=== PATIENT | female | born 1990 | race Caucasian/White ===

== ENCOUNTER → 2019-05-16 | Outpatient (CLI) | payer OTHER ==
--- NOTE | 2019-05-16 11:40 | XR ---
EXAMINATION TYPE: XR knee complete LT DATE OF EXAM: 05/16/2019 CLINICAL HISTORY: Twisting injury with pain and instability. TECHNIQUE: Three views of the left knee are obtained. COMPARISON: None. FINDINGS: There is no acute fracture/dislocation evident in left knee. Mild narrowing medial tibiofe moral compartment. No significant spurring. Soft tissues are unremarkable. A fabella is incidentally seen. IMPRESSION: There is no acute fracture or dislocation in the left knee.
== END | disposition home or self-care (01) ==
LOC: RADXRMAIN 11:00
PROVIDERS: ATTEND Family Medicine
DX: S83.8X2A Sprain of other specified parts of left knee, initial encounter (principal)

== ENCOUNTER → 2019-06-05 | Outpatient (CLI) | payer OTHER ==
--- NOTE | 2019-06-05 15:15 | MR ---
EXAMINATION TYPE: MR knee LT wo con DATE OF EXAM: 06/05/2019 COMPARISON: 05/16/2019 x-rays HISTORY: Left knee pain TECHNIQUE: Multiplanar, multisequence imaging of the left knee is performed without IV contrast. FINDINGS: MEDIAL MENISCUS: There is an oblique tear of the posterior horn of the lateral meniscus contiguous wi th the inferior articular surface with radial tear of the free edge of the posterior horn of the late ral meniscus. LATERAL MENISCUS: Anterior and posterior horns are intact without tear. CRUCIATE LIGAMENTS: The anterior and posterior cruciate ligaments are intact. There is increased sig nal of the anterior cruciate ligament and low-grade partial-thickness tear of the posterior insertion al fibers. COLLATERAL LIGAMENTS: The medial collateral ligament and lateral collateral ligament complex are are intact. EXTENSOR MECHANISM: Visualized quadriceps and patellar tendons are intact. Increased signal is seen i n the insertional fibers of the extensor tendon and patellar tendon. EFFUSION: No significant suprapatellar joint effusion. POPLITEAL CYST: No popliteal/stratton cyst. TRICOMPARTMENT SPACES: Maintained CARTILAGE: Partial-thickness defect is seen of the weightbearing surface of the and lateral femoral c ondyle measuring 6 mm. Signal heterogeneity is seen of the medial compartment cartilage with thinning of the anterior pharynx surface although no partial thickness or full-thickness focal defect is seen . Focal fissuring is seen of the patellofemoral compartment of the patellar apex. BONE MARROW SIGNAL: Intraosseous ganglion is T2 hyperintense and T1 hypointense deep to the insertion of the posterior cruciate ligament. OTHER: Mild nonspecific infrapatellar subcutaneous edema is seen. IMPRESSION: 1. Oblique tear of the posterior horn of the medial meniscus contiguous with the inferior articular s urface and radial tear of the free edge of the posterior horn of the medial meniscus. 2. Low-grade partial-thickness tear of the posterior insertional fibers of the anterior cruciate liga ment and mid grade sprain. 3. Slight increased signal the insertional fibers of the quadriceps and patellar tendon indicative of minimal insertional tendinosis. 4. Mild tricompartmental chondromalacia.
== END | disposition home or self-care (01) ==
LOC: RADMRIMAIN 12:21
PROVIDERS: ATTEND Emergency Medicine
DX: S83.242D Other tear of medial meniscus, current injury, left knee, subsequent encounter (principal); S83.512D Sprain of anterior cruciate ligament of left knee, subsequent encounter; M94.262 Chondromalacia, left knee

== ENCOUNTER → 2019-06-24 | Outpatient (CLI) | payer OTHER ==
[2019-06-24 08:18] LABS: Basophils # (A) 0.1 k/uL (0-0.2); Basophils % (A) 1 %; Eosinophils # (A) 0.3 k/uL (0-0.7); Eosinophils % (A) 3 %; HCT 43.7 % (34.0-46.0); Lymphocytes # (A) 3.3 k/uL (1.0-4.8); Lymphocytes % (A) 33 %; MCH 29.1 pg (25.0-35.0); MCHC 34.3 g/dL (31.0-37.0); MCV 84.7 fL (80.0-100.0); Mean Platelet Volume 5.7; Monocytes # (A) 0.6 k/uL (0-1.0); Monocytes % (A) 6 %; Neutrophils # (A) 5.4 k/uL (1.3-7.7); Neutrophils % (A) 55 %; Platelet Count 426 k/uL (150-450); RBC 5.17 m/uL (3.80-5.40); RDW 12.9 % (11.5-15.5); WBC 9.8 k/uL (3.8-10.6)
[2019-06-24 08:21] LABS: Potassium 4.7 mmol/L (3.5-5.1)
== END | disposition home or self-care (01) ==
LOC: LABPAT 07:33
PROVIDERS: ATTEND Orthopaedic Surgery
DX: Z01.812 Encounter for preprocedural laboratory examination (principal); M23.92 Unspecified internal derangement of left knee
CPT/HCPCS: 36415; 80051; 81025; 85025

== ENCOUNTER 2019-06-28 07:26 | Day surgery (SDC) | payer OTHER ==
[2019-06-26 10:16] VITALS: BMI 40.7
--- NOTE | 2019-06-27 12:26 | HP ---
HISTORY AND PHYSICAL CHIEF COMPLAINT: Left knee pain. 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 She tripped over some uneven cement and twisted her knee. She has had posterior and lateral pain along with giving way ever since. It is worse with weightbearing. Initially she was using a knee immobilizer. She has been working with restrictions. PAST MEDICAL HISTORY: Significant for depression, reflux disease, and polycystic ovarian disease. Also she has a history of non-insulin dependent diabetes. PAST SURGICAL HISTORY: Significant for cholecystectomy and previous shoulder surgery. CURRENT MEDICATIONS: 1. Buspirone. 2. Metformin. 3. Omeprazole. 4. Singulair. She denies drug allergies. FAMILY HISTORY: Significant for cancer, diabetes, and heart disease. SOCIAL HISTORY: Negative for current tobacco or alcohol use. REVIEW OF SYSTEMS: A 16point review of systems otherwise reviewed and is noncontributory. PHYSICAL EXAMINATION: On examination, the patient is approximately 5 foot 3, 230 pounds of endomorphic habitus. HEENT: Exam is nonfocal. NECK: Supple. She has painless passive motion of the left hip. Straight leg raise is negative. Active motion left knee -8 to 100 degrees of flexion. She has a mild effusion. She is tender about the medial greater in than lateral joint line. Collaterals are stable, Matt is negative, Isaura's elicits medial pain. She has genu valgum alignment. Her distal neurovascular appears intact in the left lower extremity. MRI report left knee 06/05/2019 shows evidence of a posterior medial meniscal tear in addition to ACL sprain and possible chondral injury involving the lateral femoral condyle. IMPRESSION: Internal derangement left knee with medial meniscal tear/possible chondral injury lateral femoral condyle. RECOMMENDATION: I talked to the patient at length regarding her condition along with treatment options. At this point, she is having significant pain and mechanical symptoms after this acute injury. After thorough discussion, she opts to proceed with surgery. We will plan to proceed with arthroscopic evaluation with medial meniscectomy in addition to lateral femoral conducting. Risks and benefits were discussed at length in layman's terms. We will likely perform that as an outpatient procedure. MMODL / IJN: [id number] /
[~2019-06-28 07:26] MED LIST: DEXAMETHASONE SOD PHOSPHATE 10 MG/ML 1 ML VIAL IV ONE; LACTATED RINGERS 1,000 ML IV SCH; MIDAZOLAM 2 MG/2 ML VIAL IV PRN; ONDANSETRON 4 MG/2 ML VIAL IVP ONE; SCOPOLAMINE 1.5MG/72HR PATCH TRANSDERM ONE
[2019-06-28 08:25] LABS: Glucose,Whole Blood 86 mg/dL (75-99)
[2019-06-28] MEDS ORDERED: LIDOCAINE 1% 20 ML VIAL (10MG/ML) FOR IV START INTRADERMA ONE (08:25)
[2019-06-28] MEDS ORDERED: LIDOCAINE 1% INJ 10MG/ML (20 ML MDV) ONE (09:25)
[2019-06-28] MEDS ORDERED: fentaNYL (PF) 50 MCG/ML 2 ML AMP ONE (09:25)
[2019-06-28] MEDS ORDERED: MIDAZOLAM 2 MG/2 ML VIAL ONE (09:25)
[2019-06-28] MEDS ORDERED: PROPOFOL 10 MG/ML 20 ML VIAL IV ONE (09:25)
[2019-06-28] MEDS ORDERED: SUCCINYLCHOLINE CHLORIDE 100 MG/5 ML SYR IV ONE (09:25)
[2019-06-28] MEDS ORDERED: EPINEPHrine (PF) 1 ML in SODIUM CHLORIDE 0.9% IRRIGATIO 3,000 ML IRRIGATION ONE ×4 (09:45)
[2019-06-28 10:33] VITALS: TEMP 97.5
--- NOTE | 2019-06-28 10:35 | P.OP ---
Date of Procedure: 06/28/19 Preoperative Diagnosis: Left knee internal derangement Postoperative Diagnosis: Left knee posterior medial meniscal tear/ACL sprain/grade 34 chondral injury lateral femoral condyle Procedure(s) Performed: Left knee arthroscopic partial medial meniscectomy/ACL debridement/lateral femoral chondrectomy with microfracture lateral femoral condyle Anesthesia: TIMOTHY Surgeon: Brian Mustafa Estimated Blood Loss (ml): 10 Pathology: none sent Condition: stable Disposition: PACU Indications for Procedure: The patient's a 28-year-old female who presents with progressive left knee pain and mechanical symptoms after a recent injury. A discussion of the risks and benefits of operative intervention versus conservative measures made with patient. She opted to proceed with surgery. Operative risks to include infection, neurovascular injury, development of blood clots, possible incomplete resolution of symptoms, possible worsening symptoms and need for subsequent procedures was discussed. Informed consent was obtained. Operative Findings: As below Description of Procedure: The patient was brought to the operating room, and after induction of general anesthesia examined the left knee. Collaterals were stable, Matt was negative, and posterior drawer was negative. The left lower extremity was prepped and draped in a normal fashion. A superior lateral portal was made through a 3 mm skin incision superior and lateral to the patella. This was used for outflow. A lateral portal was made through a 5 mm vertical skin incision lateral to the patella tendon above the joint line. Diagnostic arthroscopy was performed. On inspection of the medial compartment, oblique tear involving the posterior horn of the medial meniscus in the white-white junction was noted. A portion of this was flipped posteriorly. This was debrided back to stable base with straight baskets and a motorized shaver. On inspection of the notch, the anterior cruciate ligament appeared partially torn. A portion of this was debrided with a motorized shaver t. The remaining ACL appeared functioning. On inspection of the lateral compartment a grade 3/4 chondral injury was noted involving the distal lateral portion of the lateral femoral condyle. There was a loose chondral fragment debrided back to stable base with a motorized shaver. Microfracture was performed on the lateral femoral condyle utilizing a power pick. The subchondral surface was breached down to the bone marrow elements. On inspection of the patellofemoral articulation, minimal degenerative changes were noted. The gutters were clear debris. The knee was then thoroughly irrigated. The portals were closed with Steri-Strips. A sterile dressing was applied in addition to a compression stocking. The patient was awoken from general anesthesia and transferred to recovery room in good condition. Blood loss was estimated at 10 mL. No complications were incurred.
[2019-06-28] MEDS: HYDROmorphone 0.5 MG/0.5 ML SYRINGE IVP PRN ×2 (10:49→10:58)
[2019-06-28] MEDS ORDERED: LACTATED RINGERS 1,000 ML IV ONE (10:53)
[2019-06-28 11:43] VITALS: RESP 16
[2019-06-28] MEDS ORDERED: HYDROcodone/APAP 5-325MG 1 EACH TAB PO ONE (11:51)
[2019-06-28 12:17] VITALS: BP 106/70; PULSE 94
== END 2019-06-28 12:28 | disposition home or self-care (01) ==
LOC: OR 07:26
PROVIDERS: ATTEND Orthopaedic Surgery
DX: S83.242A Other tear of medial meniscus, current injury, left knee, initial encounter (principal); S83.512A Sprain of anterior cruciate ligament of left knee, initial encounter; S83.32XA Tear of articular cartilage of left knee, current, initial encounter; X50.1XXA Overexertion from prolonged static or awkward postures, initial encounter; Y93.89 Activity, other specified; Y92.63 Factory as the place of occurrence of the external cause; E11.9 Type 2 diabetes mellitus without complications; K21.9 Gastro-esophageal reflux disease without esophagitis; F32.9 Major depressive disorder, single episode, unspecified; E28.2 Polycystic ovarian syndrome; I10 Essential (primary) hypertension; Z90.49 Acquired absence of other specified parts of digestive tract; J45.909 Unspecified asthma, uncomplicated; Z79.1 Long term (current) use of non-steroidal anti-inflammatories (NSAID); Z79.84 Long term (current) use of oral hypoglycemic drugs; Z79.899 Other long term (current) drug therapy; Z91.02 Food additives allergy status; Z91.040 Latex allergy status
CPT/HCPCS: 81025; 29881; 29879; J2250; J1100; J0690; J2405; J0171; J2001; J3010; J0330; J2704; J1170

== ENCOUNTER → 2020-04-22 | Outpatient (CLI) | payer OTHER ==
--- NOTE | 2020-04-22 12:36 | MR ---
EXAMINATION TYPE: MR knee LT wo con DATE OF EXAM: 04/22/2020 COMPARISON: Prior MR left knee 06/05/2019, plain film 05/27/2020 HISTORY: Pain in left knee TECHNIQUE: Multiplanar, multisequence imaging of the left knee is performed without IV contrast. FINDINGS: MEDIAL MENISCUS: Stable abnormal signal at the inferior aspect of the posterior horn the medial menis cus consistent with tear. LATERAL MENISCUS: Anterior and posterior horns are intact without tear. CRUCIATE LIGAMENTS: The anterior and posterior cruciate ligaments are intact and unremarkable. COLLATERAL LIGAMENTS: The medial collateral ligament and lateral collateral ligament complex are inta ct and unremarkable. EXTENSOR MECHANISM: Visualized quadriceps and patellar tendons are intact. EFFUSION: Minimal suprapatellar joint effusion POPLITEAL CYST: No popliteal/stratton cyst. TRICOMPARTMENT SPACES: Maintained CARTILAGE: Grade 3 to grade IV chondromalacia lateral compartment, some focal fissuring of the entry processor ior patella as on prior BONE MARROW SIGNAL: Stable probable geode near the insertion of the posterior cruciate ligament the p roximal tibia posteriorly. Probable subchondral geode related in the lateral femoral condyle has prog ressed in size. OTHER: There is some minimal subcutaneous edema anteriorly. IMPRESSION: There is been some progression in the abnormal signal in the lateral femoral condyle, osteoarthritis is noted. Tear of the posterior horn of the medial meniscus as on prior exam
== END | disposition home or self-care (01) ==
LOC: RADMRIMAIN 08:53
PROVIDERS: ATTEND Orthopaedic Surgery
DX: M17.12 Unilateral primary osteoarthritis, left knee (principal); S83.242A Other tear of medial meniscus, current injury, left knee, initial encounter